=== PATIENT | male | born 1985 | race Caucasian/White ===

== ENCOUNTER 2021-07-09 12:43 | Day surgery (SDC) | payer SELFPAY ==
[~2021-07-09] VITALS: Ht 175.3 cm; Wt 87.4 kg
[2021-07-09 13:47] VITALS: BP 137/85; PULSE 77; TEMP 98.8
[2021-07-09] MEDS ORDERED: MUCUS RELIEF200 MG (15:34)
[2021-07-09 17:00] VITALS: BP 137/92; PULSE 72; TEMP 97.3
--- NOTE | 2021-07-09 17:00 | NUR ---
Pt to [facility] [place] bay 8 via cart from PACU. Pt awake and alert. Denies pain or nausea. Pt up to restroom after VS obtained. Pt steady on feet. Pt verbalizes some blood in urine and "burning." Pt denies need for pain medication. Muffin and pepsi given per pt request. Will continue to monitor.
[2021-07-09 17:15] VITALS: BP 124/58; PULSE 78
--- NOTE | 2021-07-09 17:15 | NUR ---
Pt continues to rest. Denies needs. Call light within reach.
[2021-07-09 17:17] VITALS: TEMP 98.7
[2021-07-09 17:30] VITALS: BP 129/74; PULSE 62
--- NOTE | 2021-07-09 17:30 | NUR ---
Pt asking for discharge as his is in the parking lot. IV site discontinued with all parts intact. Pt up to dress.
--- NOTE | 2021-07-09 18:00 | NUR ---
Discharge instructions reviewed. Pt voices understanding.
--- NOTE | 2021-07-09 18:05 | NUR ---
Pt escorted to private car via wheel chair. Pt accompanied home by his .
== END 2021-07-09 18:05 | disposition home or self-care (01) ==
LOC: SDCO 12:43
DX: N20.1 Calculus of ureter (principal); F17.210 Nicotine dependence, cigarettes, uncomplicated
CPT/HCPCS: C1769; C1894; C2617; J0690; J1100; J2405; J2704; J3010; J7030; Q9967